=== PATIENT | male | born 1995 | race Caucasian/White ===

== ENCOUNTER 2020-06-29 11:44 | Emergency (ER) | payer SELFPAY ==
[2020-06-29] MEDS ORDERED: Diazepam 2 MG Tab PO ONE (12:10)
[2020-06-29] MEDS ORDERED: Dexamethasone 10 MG/ML SDV IM STA (12:11)
--- NOTE | 2020-06-29 12:16 | EDM.PDOC ---
ED HPI GENERAL MEDICAL PROBLEM - General Chief Complaint: Back Pain or Injury Stated Complaint: RIGHT LOWER BACK PAIN Time Seen by Provider: 06/29/20 11:47 - History of Present Illness INITIAL COMMENTS - FREE TEXT/NARRATIVE: History of present illness: [] The patient injured himself or he went to work while he had stepped down to get his shoes this morning and then when he straightened up he had a catch in his back. He had sudden pain and spasm that is continued since. It is progressively worse especially with movement. At on the way over in the truck he had some temporary numbness in the left buttock and down the left leg. The pain is excruciating with certain movements now. There is no prior back injury. There was no direct blunt trauma or fall. The patient has no history of malignancy that could metastasize. Review of systems: As per history of present illness and below otherwise all systems reviewed and negative. Past medical history: As per history of present illness and as reviewed below otherwise n oncontributory. Surgical history: As per history of present illness and as reviewed below otherwise noncontributory. Social history: No reported history of drug or alcohol abuse. Family history: As per history of present illness and as reviewed below otherwise noncontributory. Physical exam: Constitutional - well developed, well-nourished and in no acute distress HEENT - normocephalic, no evidence of trauma - external nose and mouth normal - no mass in neck and no JVD - mucosae moist EYES - full EOM, PERRL, no icterus - no evidence of inflammation, injection, or drainage Respiratory - no respiratory distress, equal bilateral expansion, lungs clear to auscultation and no abnormal lung sounds Cardiovascular - Regular Rhythm with S1 and S2 appreciated and no murmur, gallop or rub. GI - abdomen soft without distension or organomegaly - normal bowel sounds - no guard or rebound Musculoskeletal tender in the lower lumbar spine left and right straight leg raise on the left at 45 degrees causes pain in the left than the right mid back straight leg raise on the right 45 degrees because of pain in the right but less so. Otherwise no gross deformity of long bones or joints - no tenderness, swelling or edema Neurologic alert and oriented times four - CN II-XII grossly intact - motor sensory and coordination symmetrically normal Psychiatric - appropriate mood and affect with normal thought content Hematologic - No petechiae or purpura - mucosa appropriate color and sclera not pale - normal nail bed color and refill Integument - no rash or evidence of trauma - normal turgor Diagnostics: [] Therapeutics: [] Impression: [] Plan: [] Definitive disposition and diagnosis as appropriate pending reevaluation and review of above. right lower back Pain Score (Numeric/FACES): 6 - Related Data Allergies Allergy/AdvReac Type Severity Reaction Status Date / Time No Known Allergies Allergy Verified 06/29/20 12:21 Home Meds: Home Meds Acetaminophen/HYDROcodone [[place] 325-7.5 MG] 1 - 2 tab PO Q6H PRN #14 tab 06/29/20 [Rx] diazePAM [Valium] 5 mg PO TID PRN #15 tab 06/29/20 [Rx] methylPREDNISolone [Medrol Dose Pack] 4 mg PO DAILY #21 tab 06/29/20 [Rx] ED ROS GENERAL - Review of Systems Review Of Systems: Comprehensive ROS is negative, except as noted in HPI. ED EXAM, GENERAL - Physical Exam Exam: See Below Free Text/Narrative:: My physical exam is in the HPI Course - Vital Signs Text/Narrative:: 1304 hrs. patient improved somewhat. I added some narcotic pain medicine for the first couple of days. Patient will be discharged in satisfactory condition and he understands to watch for cauda equina warning signs that we went over. This patient was seen and evaluated during the 2019 SARS-CoV-2 novel coronavirus pandemic period. Community viral transmission is ongoing at time of this encounter and the emergency department is operating under pandemic response procedures. Last Recorded V/S: Last Vital Signs Temp 36.6 C 06/29/20 12:06 Pulse 80 06/29/20 12:06 Resp 17 06/29/20 12:06 BP 117/61 06/29/20 12:06 Pulse Ox 96 06/29/20 12:06 - Orders/Labs/Meds Meds: Medications Discontinued Medications Generic Name Dose Route Start Last Admin Trade Name Freq PRN Reason Stop Dose Admin Hydrocodone Bitart/Acetaminophen 1 tab 06/29/20 12:59 [place] 325-7.5 Mg PO 06/29/20 13:00 STAT STA Dexamethasone 8 mg 06/29/20 12:11 06/29/20 12:32 Decadron IM 06/29/20 12:12 8 mg STAT STA Administration Diazepam 5 mg 06/29/20 12:10 06/29/20 12:32 Valium PO 06/29/20 12:11 5 mg ONETIME ONE Administration Departure - Departure Time of Disposition: 13:04 Disposition: Home, Self-Care 01 Condition: Good Clinical Impression: Back spasm, Back strain - Discharge Information Prescriptions: methylPREDNISolone [Medrol Dose Pack] 4 mg PO DAILY #21 tab Acetaminophen/HYDROcodone [[place] 325-7.5 MG] 1 - 2 tab PO Q6H PRN #14 tab PRN Reason: Pain (Severe 7-10) diazePAM [Valium] 5 mg PO TID PRN #15 tab PRN Reason: Muscle Spasm Instructions: Lumbosacral Strain, Muscle Strain, [id number] Referrals: PCP,Not In Area [Primary Care Provider] - Forms: ED Department Discharge Additional Instructions: You must return immediately if you lose feeling movement in your legs, feeling in your buttocks, or control of your bowel or bladder. This would indicate that there might be a deficits pushing on a nerve and might damage it. [facility] - [facility] [address] [place] [address] [place] [address] The following information is given to patients seen in the emergency department who are being discharged to home. This information is to outline your options for follow-up care. We provide all patients seen in our emergency department with a follow-up referral. The need for follow-up, as well as the timing and circumstances, are variable depending upon the specifics of your emergency department visit. If you don't have a primary care physician on staff, we will provide you with a referral. We always advise you to contact your personal physician following an emergency department visit to inform them of the circumstance of the visit and for follow-up with them and/or the need for any referrals to a consulting specialist. The emergency department will also refer you to a specialist when appropriate. This referral assures that you have the opportunity for follow-up care with a specialist. All of these measure are taken in an effort to provide you with optimal care, which includes your follow-up. Under all circumstances we always encourage you to contact your private physician who remains a resource for coordinating your care. When calling for follow-up care, please make the office aware that this follow-up is from your recent emergency room visit. If for any reason you are refused follow-up, please contact the [facility] Emergency Department at and asked to speak to the emergency department charge nurse. Sepsis Event Note (ED) - Focused Exam Vital Signs: Vital Signs Temp Pulse Resp BP Pulse Ox 06/29/20 12:06 36.6 C 80 17 117/61 96
[2020-06-29] MEDS ORDERED: Acetaminophen/HYDROcodone 325-7.5 MG Tab PO STA (12:59)
== END 2020-06-29 13:26 | disposition home or self-care (01) ==
LOC: MW.ED 11:44
DX: S39.012A Strain of muscle, fascia and tendon of lower back, initial encounter (principal); X58.XXXA Exposure to other specified factors, initial encounter
CPT/HCPCS: 96372; 99283; A9270; J1100; 99282